=== PATIENT | male | born 1975 | race Two or more races ===

== ENCOUNTER 2025-01-10 11:53 | Emergency (ER) | payer SELFPAY ==
[~2025-01-10] VITALS: Ht 188 cm; Wt 81.6 kg
[2025-01-10 12:04] VITALS: O2SAT 99
[2025-01-10] MEDS: ONDANSETRON 4MG ODT PO ONE ×2 (14:05)
[2025-01-10 14:07] LABS: HEMATOCRIT. 54.3 % (42.0-52.0); HEMOGLOBIN. 18.3 g/dL (14.0-18.0); MEAN CORPUSCULAR HEMOGLOBIN 32.8 pg (28.0-32.0); MEAN CORPUSCULAR HGB CONC 33.7 g/dL (31.0-37.0); MEAN CORPUSCULAR VOLUME 97.4 fL (80.0-94.0); MEAN PLATELET VOLUME 9.3 fl (7.4-10.4); PLATELET 197 x1000/uL (130-400); RED BLOOD CELL COUNT 5.58 mill/uL (4.7-6.1); RED CELL DISTRIBUTION WIDTH 14.1 % (11.6-14.6); WHITE BLOOD COUNT 10.8 x1000/uL (4.5-11.0)
[2025-01-10 14:08] LABS: CARBON DIOXIDE 27 mEq/L (21-32); CHLORIDE 108 mEq/L (98-107); POTASSIUM 4.2 mEq/L (3.5-5.1); SODIUM 144 mEq/L (136-145)
[2025-01-10 14:09] LABS: CALCIUM 9.6 mg/dL (8.7-10.4)
[2025-01-10 14:14] LABS: CREATININE 0.9 mg/dL (0.6-1.3); GLUCOSE 101 mg/dL (70-105); UREA NITROGEN BLOOD 15 mg/dL (9-23)
[2025-01-10] MEDS ORDERED: ONDA4TAB50 MT (14:14)
[2025-01-10 14:15] LABS: ALANINE AMINOTRANSFERASE 26 IU/L (10-49)
[2025-01-10 14:16] LABS: ALBUMIN 4.5 g/dL (3.2-4.8); ASPARTATE AMINOTRANSFERASE 22 IU/L (<34); BILIRUBIN DIRECT 0.3 mg/dL (<=3.0); BILIRUBIN TOTAL 1.2 mg/dL (0.1-1.0); PROTEIN TOTAL 7.4 g/dL (6.0-8.3)
[2025-01-10 14:21] LABS: DIFFERENTIAL COMMENT 1
[2025-01-10 14:24] VITALS: BP 111/68; PULSE 79; RESP 16; TEMP 36.8; O2SAT 99
[2025-01-10 14:42] LABS: PLATELET ESTIMATE NORMAL
== END 2025-01-10 14:23 | disposition home or self-care (01) ==
LOC: ER 11:53
DX: R11.2 Nausea with vomiting, unspecified (principal); Z98.890 Other specified postprocedural states
CPT/HCPCS: 99283; 80076; 80048; 83690; 85025; 36415; Q0162